=== PATIENT | male | born 1980 | race Caucasian/White ===

== ENCOUNTER 2024-02-22 21:09 | Emergency (ER) | payer OTHER, SELFPAY ==
[2024-02-22 21:11] VITALS: BP 134/91
--- NOTE | 2024-02-22 22:14 | ED.GENMED ---
History of Present Illness
General
Chief Complaint: Skin Surface Trauma
Source: patient
Exam Limitations: none
Time Seen by Provider: 02/22/24 21:44
Nursing documentation reviewed up to this point in time: agreed with
History of Present Illness
History of Present Illness:
43 Y/O M
right hand dominant
here with R perez dlaceration between 4th and 5th finger webspace
no bleeding
cut by a sharp edge of a measuring cup that he was cleaning
no glass or fb suspected
tetanus UTD
no numbnes/tingling/weakness
Past History
Past History
ED Past Medical History: None
ED Past Surgical History: None
Social History
Tobacco: Non-smoker
Review of Systems
Review of Systems
Allergies reviewed?: Yes
All Other Systems: Not applicable
Phy Exam
Physical Exam
Physical Exam:
GENERAL: Alert , in no apparent distress, comfortable at rest
HEAD: NCAT
CV: 2+ pulses radial, cap refill intact
NEUROLOGICAL: Alert and oriented, no focal neuro deficits, , 5/5 strength, sensation intact, ambulation slight limp right leg
SKIN: Warm and dry, irregular linear laceration approx 2.5 cm to web space bewteen right 4th and 5th gingers
MUSCULOSKELETAL: laceration otherwise normal ROM and function
PSYCH: Normal and appropriate interaction.
Course
Vital Signs
Initial and Last Documented VS:
Initial Vital Signs
Temp Pulse Resp BP Pulse Ox
36.8 C 75 16 134/91 100
02/22/24 21:11 02/22/24 21:11 02/22/24 21:11 02/22/24 21:11 02/22/24 21:11
Last Documented Vital Signs
Temp Pulse Resp BP Pulse Ox
36.8 C 75 16 134/91 100
02/22/24 21:11 02/22/24 21:11 02/22/24 21:11 02/22/24 21:11 02/22/24 21:11
Procedures
Laceration Closure
Right Finger(s):
Status of Wound: clean
Size of Wound in cm: 2.5
Description of Wound Edges: sharp and flap-well vascularized
Preparation: cleaned with saline
Anesthesia: 1% Lidocaine
Revision/Debridement: routine- no revision
Type of Closure: single layer closure
Skin Closure Material: 4-0 nylon
MDM/Problems Addressed
Differential Diagnosis Includes:
laceration
MDM/Problems Addressed:
43 y/o M
web space laceration
irrigated, repaired
full ROM, neuro intact
*Critical Care Note
Total Time (30-74mins, 75-104mins- exclusive of procedures): Not Applicable
ED Attending Note
-
Portions of this chart may have been created with voice recognition software.� Occasional wrong word or��sound alike� substitutions may have occurred due to the inherent limitations of voice recognition software.
Discharge Plan
Departure
Patient Disposition: Home (Routine Discharge)
Patient with high blood pressure during this ER visit?: No
Condition: Fair
Covid-19: Not Applicable
Discharge Problem:
Laceration of hand
Instructions: Laceration Repair With Stitches (DC)
Activity Restrictions/Additional Instructions:
KEEP THE WOUND CLEAN AND DRY FOR 24 HOURS
AFTER THAT YOU CAN GET IT WET IN THE BATH/SHOWER ONCE A DAY AND MAKE SURE IT IS CLEAN AND THERE IS NO DRIED BLOOD ON THE STITCHES
APPLY NEOSPORIN AND A BANDAID
THE STITCHES NEED TO BE REMOVED IN ABOUT 7-10 DAYS, SEE YOUR DOCTOR FOR THIS.
THE LAST DAY BEFORE STITCHES OUT, NO OINTMENT, LEAVE OPEN TO AIR
WATCH FOR SIGNS OF INFECTION AND RETURN NEEDED FOR PAIN, SWELLING, REDNESS, DRAINAGE, BLEEDING.
Interventions
Interventions:
*Risk Screen - Suicide Last Done: 02/22/24 21:11
*General Assessment Last Done: 02/22/24 21:11
*Neglect/Abuse Screening Last Done: 02/22/24 21:11
ED- Fall Risk Assessment Last Done: 02/22/24 21:42
*ED COVID-19 Vaccine History Last Done: 02/22/24 21:11
*Nursing Disposition Last Done: 02/22/24 22:41
ED-Skin Assessment Last Done: 02/22/24 21:42
Discharge Date and Time
Discharge Date/Time: 02/22/24 22:42
Print Language: SWEDISH
== END 2024-02-22 22:42 | disposition home or self-care (01) ==
LOC: EMR 21:09
PROVIDERS: EMERGENCY PHYSICIAN Emergency Medicine
DX: S61.411A Laceration without foreign body of right hand, initial encounter (principal); W25.XXXA Contact with sharp glass, initial encounter
CPT/HCPCS: 12001; 99282